=== PATIENT | male | born 1945 | race Caucasian/White ===

== ENCOUNTER 2018-11-12 07:00 | Observation (INO) | payer OTHER, MEDICARE ==
[~2018-11-12] VITALS: Ht 175.3 cm; Wt 78.2 kg
[2018-11-12 07:53] LABS: ALANINE AMINOTRANSFERASE 16 U/L (12-78); ALBUMIN 3.2 g/dL (3.4-5.0); ANION GAP 6 mmol/L (5-15); CALCIUM 8.7 mg/dL (8.5-10.1); CHLORIDE 112 mmol/L (98-107); CREATININE 1.29 mg/dL (0.7-1.3)
[2018-11-12 07:55] LABS: ALKALINE PHOSPHATASE 84 U/L (45-117); BILIRUBIN,TOTAL 0.3 mg/dL (0.2-1.0); TOTAL PROTEIN 6.5 g/dL (6.4-8.2)
[2018-11-12 08:30] LABS: MICROSCOPIC NOT IND
[2018-11-12 08:35] LABS: CULTURE INDICATED? NO
[2018-11-12 08:57] LABS: BASOPHILS # (AUTO) 0.03 x10^3/uL (0-0.1); BASOPHILS % (AUTO) 1 % (0-1); EOSINOPHILS # (AUTO) 0.14 x10^3/uL (0-0.4); EOSINOPHILS % (AUTO) 3 % (1-7); LYMPHOCYTES # (AUTO) 0.79 x10^3/uL (1-3.4); LYMPHOCYTES % (AUTO) 16 % (22-44); MD NO; MEAN CORPUSCULAR HEMOGLOBIN 32.4 pg (27.5-34.5); MEAN CORPUSCULAR HGB CONC 34.1 g/dL (33.2-36.2); MEAN CORPUSCULAR VOLUME 95.2 fL (81-97); MEAN PLATELET VOLUME 8.1 fL (7.4-10.4); MONOCYTES # (AUTO) 0.41 x10^3/uL (0.2-0.8); MONOCYTES % (AUTO) 8 % (2-9); NEUTROPHILS % (AUTO) 73 % (42-75); PLATELET COUNT 252 x10^3/uL (130-400); RED BLOOD COUNT 3.97 x10^6/uL (4.38-5.82); RED CELL DISTRIBUTION WIDTH 14.3 % (9.4-14.8)
[2018-11-12] MEDS ORDERED: SODIUM CHLORIDE FLUSH 10ML SYR IVF PRN (10:00)
[2018-11-12] MEDS ORDERED: CARB1TAB43 PO (10:02)
[2018-11-12] MEDS ORDERED: FINA5TAB4 PO (10:02)
[2018-11-12] MEDS ORDERED: LISI-167 PO (10:02)
[2018-11-12] MEDS ORDERED: GABA300C10 PO (10:02)
[2018-11-12] MEDS ORDERED: BENZ-17 PO (10:02)
[2018-11-12] MEDS ORDERED: ROPI0.254 PO (10:02)
[2018-11-12] MEDS ORDERED: QUET50TA PO (10:02)
[2018-11-12] MEDS ORDERED: HYDR12.517 PO (10:02)
[2018-11-12] MEDS ORDERED: TAMS0.4C2 PO (10:02)
[2018-11-12] MEDS ORDERED: SENN-92 PO (10:02)
[2018-11-12] MEDS ORDERED: LORA-445 PO (10:02)
[2018-11-12] MEDS ORDERED: [UNRECOGNIZED DRUG - OTHER] (10:02)
[2018-11-12] MEDS ORDERED: MEMA7CAP PO (10:02)
--- NOTE | 2018-11-12 10:40 | NUR ---
CAME FROM [facility] [address] [facility], [place], [facility] [phone]
[2018-11-12 11:09] VITALS: BP 162/93
[2018-11-12] MEDS: ROPINIROLE 0.25MG TABLET PO SCH ×3 (13:00→20:06)
[2018-11-12] MEDS ORDERED: LISINOPRIL 10 MG TABLET PO SCH (13:00)
[2018-11-12] MEDS: [UNRECOGNIZED DRUG - REMARK] MC SCH ×2 (13:30→20:13)
[2018-11-12 13:50] VITALS: BP 133/77
[2018-11-12] MEDS ORDERED: ROPINIROLE 1MG TABLET ONE ×2 (13:52→17:06)
[2018-11-12] MEDS: TAMSULOSIN 0.4 MG CAP.ER.24H PO SCH (13:58)
[2018-11-12] MEDS: CARBIDOPA/LEVODOPA CR 25 MG/100 MG TABLET PO SCH ×3 (13:58→20:07)
[2018-11-12] MEDS: BENZONATATE 100 MG CAPSULE PO SCH ×3 (13:58→20:06)
[2018-11-12] MEDS: HYDROCHLOROTHIAZIDE 12.5 MG CAPSULE PO SCH (13:59)
[2018-11-12] MEDS: QUETIAPINE 25MG TABLET PO SCH ×3 (13:59→20:16)
[2018-11-12] MEDS: GABAPENTIN 100 MG CAPSULE PO SCH ×3 (14:00→20:06)
[2018-11-12] MEDS: FINASTERIDE 5 MG TABLET PO SCH (14:00)
[2018-11-12] MEDS: LORazepam 0.5MG TABLET PO SCH ×3 (14:00→20:07)
[2018-11-12 19:13] VITALS: BP 109/69
[2018-11-12] MEDS: SENNA/DOCUSATE TABLET PO SCH (20:05)
[2018-11-12] MEDS: MEMANTINE HCL 10 MG PO SCH (20:08)
[2018-11-13 02:20] VITALS: BP 98/64
[2018-11-13] MEDS: [UNRECOGNIZED DRUG - REMARK] MC SCH (04:26)
[2018-11-13] MEDS: LORazepam 0.5MG TABLET PO SCH ×4 (05:02→20:03)
[2018-11-13] MEDS: BENZONATATE 100 MG CAPSULE PO SCH ×4 (05:02→20:03)
[2018-11-13 07:05] VITALS: BP 103/67
[2018-11-13] MEDS ORDERED: LISINOPRIL 20 MG TABLET PO SCH (09:00)
[2018-11-13] MEDS: MEMANTINE HCL 10 MG PO SCH (09:45)
[2018-11-13] MEDS: GABAPENTIN 100 MG CAPSULE PO SCH ×3 (09:46→20:03)
[2018-11-13] MEDS: HYDROCHLOROTHIAZIDE 12.5 MG CAPSULE PO SCH (09:46)
[2018-11-13] MEDS: TAMSULOSIN 0.4 MG CAP.ER.24H PO SCH (09:46)
[2018-11-13] MEDS: FINASTERIDE 5 MG TABLET PO SCH (09:49)
[2018-11-13] MEDS: ROPINIROLE 0.25MG TABLET PO SCH ×3 (09:50→20:03)
[2018-11-13] MEDS: SENNA/DOCUSATE TABLET PO SCH ×2 (09:50→20:03)
[2018-11-13] MEDS: QUETIAPINE 25MG TABLET PO SCH ×3 (09:51→20:03)
[2018-11-13] MEDS: CARBIDOPA/LEVODOPA CR 25 MG/100 MG TABLET PO SCH ×3 (09:51→20:03)
[2018-11-13] MEDS: MEMANTINE 10MG TABLET PO SCH (11:11)
[2018-11-13 12:35] VITALS: BP 95/60
[2018-11-13] MEDS: ENOXAPARIN 40 MG/0.4 ML SQ SCH (16:15)
[2018-11-13 19:12] VITALS: BP 114/75
[2018-11-14 02:25] VITALS: BP 109/79
[2018-11-14] MEDS: BENZONATATE 100 MG CAPSULE PO SCH ×4 (06:16→20:40)
[2018-11-14] MEDS: LORazepam 0.5MG TABLET PO SCH ×4 (06:17→20:39)
[2018-11-14 06:39] VITALS: BP 111/80
[2018-11-14] MEDS: TAMSULOSIN 0.4 MG CAP.ER.24H PO SCH (08:48)
[2018-11-14] MEDS: MEMANTINE 10MG TABLET PO SCH (08:49)
[2018-11-14] MEDS: HYDROCHLOROTHIAZIDE 12.5 MG CAPSULE PO SCH (08:49)
[2018-11-14] MEDS: FINASTERIDE 5 MG TABLET PO SCH (08:49)
[2018-11-14] MEDS: LISINOPRIL 20 MG TABLET PO SCH (08:49)
[2018-11-14] MEDS: GABAPENTIN 100 MG CAPSULE PO SCH ×3 (08:49→20:39)
[2018-11-14] MEDS: ROPINIROLE 0.25MG TABLET PO SCH ×3 (08:49→20:39)
[2018-11-14] MEDS: CARBIDOPA/LEVODOPA CR 25 MG/100 MG TABLET PO SCH ×3 (08:50→20:40)
[2018-11-14] MEDS: QUETIAPINE 25MG TABLET PO SCH ×3 (08:50→20:40)
[2018-11-14] MEDS: SENNA/DOCUSATE TABLET PO SCH ×2 (08:51→20:39)
[2018-11-14 15:58] VITALS: BP 129/83
[2018-11-14] MEDS: ENOXAPARIN 40 MG/0.4 ML SQ SCH (16:24)
[2018-11-14 19:10] VITALS: BP 117/74
[2018-11-14 19:32] VITALS: BP 112/72
[2018-11-15 04:57] VITALS: BP 112/76
[2018-11-15] MEDS: BENZONATATE 100 MG CAPSULE PO SCH ×4 (05:02→22:30)
[2018-11-15] MEDS: LORazepam 0.5MG TABLET PO SCH ×4 (05:02→22:30)
[2018-11-15 06:51] VITALS: BP 112/75
[2018-11-15] MEDS: SENNA/DOCUSATE TABLET PO SCH ×2 (09:00→21:00)
[2018-11-15] MEDS: LISINOPRIL 20 MG TABLET PO SCH (09:00)
[2018-11-15] MEDS: TAMSULOSIN 0.4 MG CAP.ER.24H PO SCH (09:46)
[2018-11-15] MEDS: GABAPENTIN 100 MG CAPSULE PO SCH ×3 (09:46→22:30)
[2018-11-15] MEDS: MEMANTINE 10MG TABLET PO SCH (09:46)
[2018-11-15] MEDS: CARBIDOPA/LEVODOPA CR 25 MG/100 MG TABLET PO SCH ×3 (09:47→22:30)
[2018-11-15] MEDS: ROPINIROLE 0.25MG TABLET PO SCH ×3 (09:47→22:30)
[2018-11-15] MEDS: QUETIAPINE 25MG TABLET PO SCH ×3 (09:47→22:30)
[2018-11-15] MEDS: FINASTERIDE 5 MG TABLET PO SCH (09:47)
[2018-11-15] MEDS: HYDROCHLOROTHIAZIDE 12.5 MG CAPSULE PO SCH (09:47)
[2018-11-15 14:39] VITALS: BP 112/68
[2018-11-15] MEDS: ENOXAPARIN 40 MG/0.4 ML SQ SCH (16:00)
[2018-11-15 19:25] VITALS: BP 135/85
[2018-11-16 00:03] VITALS: BP 128/85
[2018-11-16] MEDS: BENZONATATE 100 MG CAPSULE PO SCH ×4 (06:03→20:47)
[2018-11-16] MEDS: LORazepam 0.5MG TABLET PO SCH ×4 (06:03→20:47)
[2018-11-16 07:16] VITALS: BP 103/67
[2018-11-16] MEDS: ROPINIROLE 0.25MG TABLET PO SCH ×3 (08:01→20:47)
[2018-11-16] MEDS: QUETIAPINE 25MG TABLET PO SCH ×3 (08:02→20:48)
[2018-11-16] MEDS: TAMSULOSIN 0.4 MG CAP.ER.24H PO SCH (08:02)
[2018-11-16] MEDS: HYDROCHLOROTHIAZIDE 12.5 MG CAPSULE PO SCH (08:02)
[2018-11-16] MEDS: GABAPENTIN 100 MG CAPSULE PO SCH ×3 (08:02→20:47)
[2018-11-16] MEDS: FINASTERIDE 5 MG TABLET PO SCH (08:02)
[2018-11-16] MEDS: LISINOPRIL 20 MG TABLET PO SCH (08:02)
[2018-11-16] MEDS: CARBIDOPA/LEVODOPA CR 25 MG/100 MG TABLET PO SCH ×3 (08:03→20:47)
[2018-11-16] MEDS: MEMANTINE 10MG TABLET PO SCH (08:03)
[2018-11-16] MEDS: SENNA/DOCUSATE TABLET PO SCH ×2 (09:00→20:47)
[2018-11-16 15:43] VITALS: BP 103/67
[2018-11-16] MEDS: ENOXAPARIN 40 MG/0.4 ML SQ SCH (16:43)
[2018-11-16 18:37] VITALS: BP 96/64
[2018-11-16] MEDS ORDERED: QUETIAPINE 100MG TABLET ONE (20:37)
[2018-11-17 01:06] VITALS: BP 91/58
[2018-11-17] MEDS: BENZONATATE 100 MG CAPSULE PO SCH ×4 (05:31→20:35)
[2018-11-17] MEDS: LORazepam 0.5MG TABLET PO SCH ×4 (05:31→20:35)
[2018-11-17 06:46] VITALS: BP 123/77
[2018-11-17] MEDS: SENNA/DOCUSATE TABLET PO SCH ×2 (09:00→20:35)
[2018-11-17] MEDS: GABAPENTIN 100 MG CAPSULE PO SCH ×3 (09:59→20:34)
[2018-11-17] MEDS: LISINOPRIL 20 MG TABLET PO SCH (09:59)
[2018-11-17] MEDS: QUETIAPINE 25MG TABLET PO SCH ×3 (09:59→20:34)
[2018-11-17] MEDS: HYDROCHLOROTHIAZIDE 12.5 MG CAPSULE PO SCH (09:59)
[2018-11-17] MEDS: ROPINIROLE 0.25MG TABLET PO SCH ×3 (09:59→20:35)
[2018-11-17] MEDS: MEMANTINE 10MG TABLET PO SCH (10:00)
[2018-11-17] MEDS: FINASTERIDE 5 MG TABLET PO SCH (10:00)
[2018-11-17] MEDS: TAMSULOSIN 0.4 MG CAP.ER.24H PO SCH (10:00)
[2018-11-17] MEDS: CARBIDOPA/LEVODOPA CR 25 MG/100 MG TABLET PO SCH ×3 (10:00→20:35)
[2018-11-17 13:48] VITALS: BP 110/73
[2018-11-17] MEDS: ENOXAPARIN 40 MG/0.4 ML SQ SCH (16:00)
[2018-11-17 19:47] VITALS: BP 94/62
[2018-11-18 03:04] VITALS: BP 107/73
[2018-11-18] MEDS: LORazepam 0.5MG TABLET PO SCH ×4 (05:03→21:07)
[2018-11-18] MEDS: BENZONATATE 100 MG CAPSULE PO SCH ×4 (05:03→21:07)
[2018-11-18 07:05] VITALS: BP 104/71
[2018-11-18] MEDS ORDERED: ROPI0.254 PO (07:28)
[2018-11-18] MEDS ORDERED: TAMS0.4C2 PO (07:28)
[2018-11-18] MEDS ORDERED: MEMA7CAP PO (07:28)
[2018-11-18] MEDS ORDERED: GABA300C10 PO (07:28)
[2018-11-18] MEDS ORDERED: BENZ-17 PO (07:28)
[2018-11-18] MEDS ORDERED: HYDR12.517 PO (07:28)
[2018-11-18] MEDS ORDERED: CARB1TAB43 PO (07:28)
[2018-11-18] MEDS ORDERED: FINA5TAB4 PO (07:28)
[2018-11-18] MEDS ORDERED: QUET50TA PO (07:28)
[2018-11-18] MEDS ORDERED: LISI-167 PO (07:28)
[2018-11-18] MEDS ORDERED: SENN-92 PO (07:28)
[2018-11-18] MEDS ORDERED: LORA-445 PO (07:28)
[2018-11-18] MEDS: LISINOPRIL 20 MG TABLET PO SCH (09:30)
[2018-11-18] MEDS: GABAPENTIN 100 MG CAPSULE PO SCH ×3 (09:31→21:08)
[2018-11-18] MEDS: TAMSULOSIN 0.4 MG CAP.ER.24H PO SCH (09:31)
[2018-11-18] MEDS: QUETIAPINE 25MG TABLET PO SCH ×3 (09:31→21:07)
[2018-11-18] MEDS: ROPINIROLE 0.25MG TABLET PO SCH ×3 (09:31→21:07)
[2018-11-18] MEDS: FINASTERIDE 5 MG TABLET PO SCH (09:31)
[2018-11-18] MEDS: MEMANTINE 10MG TABLET PO SCH (09:31)
[2018-11-18] MEDS: CARBIDOPA/LEVODOPA CR 25 MG/100 MG TABLET PO SCH ×3 (09:31→21:07)
[2018-11-18] MEDS: SENNA/DOCUSATE TABLET PO SCH ×2 (09:32→21:07)
[2018-11-18] MEDS: HYDROCHLOROTHIAZIDE 12.5 MG CAPSULE PO SCH (09:32)
[2018-11-18 12:27] VITALS: BP 121/78
[2018-11-18] MEDS: ENOXAPARIN 40 MG/0.4 ML SQ SCH (16:23)
[2018-11-18 19:48] VITALS: BP 99/67
[2018-11-18] MEDS ORDERED: QUETIAPINE 100MG TABLET ONE (20:59)
[2018-11-19 01:12] VITALS: BP 103/69
[2018-11-19] MEDS: BENZONATATE 100 MG CAPSULE PO SCH ×4 (05:56→21:00)
[2018-11-19] MEDS: LORazepam 0.5MG TABLET PO SCH ×4 (05:57→21:31)
[2018-11-19 06:50] VITALS: BP 115/75
[2018-11-19] MEDS: TAMSULOSIN 0.4 MG CAP.ER.24H PO SCH (08:38)
[2018-11-19] MEDS: MEMANTINE 10MG TABLET PO SCH (08:39)
[2018-11-19] MEDS: FINASTERIDE 5 MG TABLET PO SCH (08:39)
[2018-11-19] MEDS: HYDROCHLOROTHIAZIDE 12.5 MG CAPSULE PO SCH (08:39)
[2018-11-19] MEDS: GABAPENTIN 100 MG CAPSULE PO SCH ×3 (08:39→21:31)
[2018-11-19] MEDS: ROPINIROLE 0.25MG TABLET PO SCH ×3 (08:40→21:31)
[2018-11-19] MEDS: SENNA/DOCUSATE TABLET PO SCH ×2 (08:40→21:31)
[2018-11-19] MEDS: QUETIAPINE 25MG TABLET PO SCH ×3 (08:40→21:32)
[2018-11-19] MEDS: CARBIDOPA/LEVODOPA CR 25 MG/100 MG TABLET PO SCH ×3 (08:40→21:31)
[2018-11-19] MEDS: LISINOPRIL 20 MG TABLET PO SCH (09:00)
[2018-11-19 12:58] VITALS: BP 107/68
[2018-11-19] MEDS: ENOXAPARIN 40 MG/0.4 ML SQ SCH (16:01)
[2018-11-19 18:48] VITALS: BP 101/62
[2018-11-19] MEDS ORDERED: QUETIAPINE 100MG TABLET ONE (21:29)
[2018-11-20 01:36] VITALS: BP 98/57
[2018-11-20] MEDS: BENZONATATE 100 MG CAPSULE PO SCH ×4 (05:08→21:20)
[2018-11-20] MEDS: LORazepam 0.5MG TABLET PO SCH ×4 (05:08→21:18)
[2018-11-20 07:28] VITALS: BP 108/73
[2018-11-20] MEDS: FINASTERIDE 5 MG TABLET PO SCH (08:54)
[2018-11-20] MEDS: TAMSULOSIN 0.4 MG CAP.ER.24H PO SCH (08:54)
[2018-11-20] MEDS: QUETIAPINE 25MG TABLET PO SCH ×3 (08:54→21:00)
[2018-11-20] MEDS: ROPINIROLE 0.25MG TABLET PO SCH ×3 (08:55→21:20)
[2018-11-20] MEDS: MEMANTINE 10MG TABLET PO SCH (08:55)
[2018-11-20] MEDS: HYDROCHLOROTHIAZIDE 12.5 MG CAPSULE PO SCH (08:55)
[2018-11-20] MEDS: LISINOPRIL 20 MG TABLET PO SCH (08:56)
[2018-11-20] MEDS: CARBIDOPA/LEVODOPA CR 25 MG/100 MG TABLET PO SCH ×3 (08:56→21:18)
[2018-11-20] MEDS: SENNA/DOCUSATE TABLET PO SCH ×2 (08:57→21:20)
[2018-11-20] MEDS: GABAPENTIN 100 MG CAPSULE PO SCH ×3 (10:12→21:20)
[2018-11-20 13:06] VITALS: BP 118/77
[2018-11-20] MEDS: ENOXAPARIN 40 MG/0.4 ML SQ SCH (17:00)
[2018-11-20 18:48] VITALS: BP 130/88
[2018-11-20] MEDS ORDERED: QUETIAPINE 100MG TABLET ONE (21:14)
[2018-11-21 00:05] VITALS: BP 89/49
[2018-11-21 01:01] VITALS: BP 90/49
[2018-11-21] MEDS ORDERED: SODIUM CHLORIDE 0.9%, 500ML IVBOLUS ONE (01:30)
[2018-11-21 03:59] VITALS: BP 102/67
[2018-11-21] MEDS: BENZONATATE 100 MG CAPSULE PO SCH (05:20)
[2018-11-21] MEDS: LORazepam 0.5MG TABLET PO SCH (05:34)
[2018-11-21 07:20] VITALS: BP 110/74
[2018-11-21] MEDS: SENNA/DOCUSATE TABLET PO SCH (08:21)
[2018-11-21] MEDS: GABAPENTIN 100 MG CAPSULE PO SCH (08:21)
[2018-11-21] MEDS: QUETIAPINE 25MG TABLET PO SCH (08:21)
[2018-11-21] MEDS: ROPINIROLE 0.25MG TABLET PO SCH (08:21)
[2018-11-21] MEDS: FINASTERIDE 5 MG TABLET PO SCH (08:21)
[2018-11-21] MEDS: TAMSULOSIN 0.4 MG CAP.ER.24H PO SCH (08:21)
[2018-11-21] MEDS: MEMANTINE 10MG TABLET PO SCH (08:21)
[2018-11-21] MEDS: CARBIDOPA/LEVODOPA CR 25 MG/100 MG TABLET PO SCH (08:21)
[2018-11-21] MEDS: LISINOPRIL 20 MG TABLET PO SCH (08:22)
[2018-11-21] MEDS: HYDROCHLOROTHIAZIDE 12.5 MG CAPSULE PO SCH (08:22)
== END 2018-11-21 11:11 | disposition home or self-care (01) ==
LOC: ED 09:33 → EDIP 09:52 → INTOOBSV 09:52 → 3NE 10:26
PROVIDERS: ADMIT Hospitalist; ATTEND Internal Medicine
DX: F02.81 Dementia in other diseases classified elsewhere, unspecified severity, with behavioral disturbance (principal); G20 Parkinson's disease; I10 Essential (primary) hypertension; N40.0 Benign prostatic hyperplasia without lower urinary tract symptoms
CPT/HCPCS: 36415; 80053; 81003; 83690; 85025; 86480; 96372; 99284; G0378; J1650; J7040; 99285